=== PATIENT | female | born 1965 | race Caucasian/White ===

== ENCOUNTER 2024-08-14 12:16 | Outpatient (RCR) | payer OTHER, SELFPAY ==
--- NOTE | 2024-08-14 13:02 | PTOPEVAL1 ---
Assessment and note entered by Quan Stephens Evaluation Information Assessment Status Evaluation ICD-10 Condition Codes (PT) Pain in low back M54.50,M54.16 Onset 11/29/23 Subjective Information Pt. reports she fell onto her tailbone after slipping on ice in November. She reports she noticed immediate back pain. She reports that she has not been doing anything but stretching. She reports that she has hx of spina bifida and her L4 and L5 vertebra are fused. She reports that pain is located on the right side of the low back and shoots into the right leg all the way down to the foot. She does have numbness and tingling in the right leg. She states that pain will wake her every time she moves during the night. She states that she is not working right now. She states that she enjoys working in the yard, but is limited due to her pain. She reports that pain is constant. She reports that her goal is to decrease her back pain in order to begin to work in the yard. Reported Pain Level Pain Score 5: Self Report Assessment PT Clinical Summary Pt. is a 58 year old female who enters the clinic with a diagnosis of lumbar radiculopathy. She presents with impaired postural awareness, impaired gait, impaired flexibility, impaired l.e. and abdominal strength and pain. Continued skilled PT is indicated in order to improve these areas to allow for improved comfort with IADL performance. Plan of Care Interventions Electrical Stimulation,Gait Training,Hot Pack/Cold Pack,Manual Therapy,Mechanical Traction,Neuro Re- education,Patient/Caregiver Educati,Therapeutic Activities,Therapeutic Exercise Treatment Frequency and 3x/week x 12 visits Duration These treatments will address the objective and functional deficits as defined above. The patient will be advanced safely and appropriately in order for the patient to progress towards his/her prior level of function. Additional exercises will be introduced and as well as a comprehensive home exercise program upon discharge, if needed, ?to ensure carryover of functional gains achieved in the clinic. This treatment plan has been reviewed and agreement upon by the patient.
--- NOTE | 2024-08-14 13:03 | OPREHPOC ---
Outpatient Therapy Plan of Care This is a Multidisciplinary Plan of Care that may contain components documented by all disciplines (PT, OT, and ST.) PT Problem 1 PT Problem #1 Knowledge Deficit PT Goal 1 Goal / Goal Update Pt. will be independent with a HEP addressing core strength and flexibility. Target Visit 2 PT Problem 2 PT Problem #2 Pain PT Goal 1 Goal / Goal Update Pt. will report pain levels at 5/10 at worst with all IADL's Pt. will provide reports of being able to sleep through the night without pain disturbance Target Visit 12 PT Problem 3 PT Problem #3 Impaired Functional Mobil PT Goal 1 Goal / Goal Update Pt. will present with less than 20% limitation on the [place] Pt. will present with ability to lift 10-20# from floor to waist with safe mechanics and no pain increase. Target Visit 12 PT Problem 4 PT Problem #4 Impaired Strength PT Goal 1 Goal / Goal Update Pt. will present with good lower and upper abdominal strength in order to improve standing stability and endurance. Target Visit 12
--- NOTE | 2024-09-18 17:43 | PCPTNOTE ---
Pt. attended her initial evaluation on 08/14/24. She has failed to return to the clinic and has not contacted the clinic. She will be discharged from our care . Refer to the initial evaluation for discharge status. Quan Stephens, MPT
== END 2024-08-14 20:00 | disposition home or self-care (01) ==
LOC: CHSPT 12:16
PROVIDERS: Visit Provider Registered Nurse
DX: M54.9 Dorsalgia, unspecified (principal)
CPT/HCPCS: 97110; 97161

== ENCOUNTER 2024-11-02 14:30 | Outpatient (CLI) | payer OTHER, SELFPAY ==
--- NOTE | ~2024-11-02 | CT_ITS ---
CT Scan of the Chest without Contrast: Clinical Indication: Pulmonary nodule, shortness of breath Technique: Contiguous sections were acquired throughout the chest without intravenous contrast. Dose reduction technique was used on this scan by utilizing automated exposure control and iterative recon struction technique. The dose-length product (DLP) was 60.27 mGy-cm. Findings: There is no evidence of any significant mediastinal, hilar or axillary lymphadenopathy. The mediastin al soft tissues appear normal. There is no evidence of pleural or pericardial effusion. 6 mm probable semisolid nodule noted left upper lobe (axial image 27). Calcified right lower lobe gra nuloma present. There is linear/discoid left lower lobe scarring. Images through the upper abdomen reveal no abnormalities. Impression: 6 mm semisolid left upper lobe pulmonary nodule. One-year follow-up exam advised. Reviewed, dictated and finalized at [facility]. [employer] Impression: 6 mm semisolid left upper lobe pulmonary nodule. One-year follow-up exam advise lidya
== END 2024-11-02 14:31 | disposition home or self-care (01) ==
LOC: CHSIMG 14:32
PROVIDERS: PCP Registered Nurse; Visit Provider Registered Nurse
DX: R91.1 Solitary pulmonary nodule (principal)
CPT/HCPCS: 71250